=== PATIENT | male | born 1990 | race Hispanic/Latino ===

== ENCOUNTER 2016-11-26 17:03 | Emergency (ER) | payer OTHER ==
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
[2016-11-26] MEDS: MOTRIN PO ONE (22:27)
[2016-11-26 22:33] VITALS: BP 128/73
== END 2016-11-26 22:36 | disposition home or self-care (01) ==
LOC: ED 17:03
DX: S39.012A Strain of muscle, fascia and tendon of lower back, initial encounter (principal); S13.4XXA Sprain of ligaments of cervical spine, initial encounter; V49.49XA Driver injured in collision with other motor vehicles in traffic accident, initial encounter; Y93.9 Activity, unspecified; Y92.9 Unspecified place or not applicable; Y99.9 Unspecified external cause status
CPT/HCPCS: 99282